=== PATIENT | male | born 1970 | race Caucasian/White ===

== ENCOUNTER → 2016-11-06 | Outpatient (CLI) | payer OTHER | LOC: RAD 17:54 | PROVIDERS: ATTEND Neurological Surgery | DX: G35 Multiple sclerosis (principal) | CPT/HCPCS: 70553; A9577 ==

== ENCOUNTER → 2017-03-20 | Outpatient (CLI) | payer OTHER ==
--- NOTE | 2017-03-21 12:27 | RADIOLOGY REPORT (SQ) ---
EXAM DESCRIPTION: MRI LT UPPER JOINT WITHOUT COMPLETED DATE/TIME: 03/20/2017 9:01 pm REASON FOR STUDY: Pain in left elbow M25.522 PAIN IN LEFT ELBOW COMPARISON: None. TECHNIQUE: Left elbow images acquired and stored on PACS. Multiplanar images to include fat sensiti ve sequences as T1, fluid sensitive sequences as T2/STIR, cartilage sensitive sequences as FSPD, and gradient echo sequences. LIMITATIONS: Artifact over olecranon. FINDINGS: BONE MARROW: No alteration of signal to suggest marrow replacement or edema. No occult fra cture. No large osteophytes. JOINT EFFUSION: None noted. No loose bodies. ARTICULAR SURFACES: Normal. MEDIAL COLLATERAL LIGAMENT COMPLEX: Intact without edema or tear. MEDIAL EPICONDYLE AND COMMON FLEXOR TENDON: Increased signal associated with thickening of the common flexor tendon origin. LATERAL COLLATERAL LIGAMENT: Intact without edema or tear. LATERAL EPICONDYLE AND COMMON EXTENSOR TENDON: No tendinopathy. No partial or full-thickness tear. LATERAL ULNAR COLLATERAL LIGAMENT: Intact without evidence for tear. BICEPS TENDON: Intact. No partial or full-thickness tendon tear. No muscle edema. TRICEPS TENDON: Intact. ULNAR NERVE: Well-visualized without edema or encroachment. ADJACENT SOFT TISSUES: No masses or edema. OTHER: No other significant finding. IMPRESSION: Tendinopathy/partial tear common flexor tendon origin. TECHNICAL DOCUMENTATION: JOB ID: [id number] [employer]- All Rights Reserved
== END ==
LOC: RAD 19:24
PROVIDERS: ATTEND Neurological Surgery
DX: M25.522 Pain in left elbow (principal)

== ENCOUNTER → 2018-04-13 | Day surgery (SDC) | payer OTHER ==
[~2018-04-13] MED LIST: LIDOCAINE 2% INJ (20 MG/ML) 20 ML MDV ONE; METHYLPREDNISOLONE ACETATE INJ 40 MG/1 ML ML ONE
--- NOTE | 2018-04-13 15:23 | Operative Report ---
PREOPERATIVE DIAGNOSIS: Lumbar Spondylosis POSTOPERATIVE DIAGNOSIS: Lumbar Spondylosis PROCEDURE: Radiofrequency Ablation of medial branches - RT L3 L4 L5 DATE OF PROCEDURE: 04/13/2018 ANESTHESIA: Local COMPLICATIONS: None CONSENT: A full description of the procedure was provided including benefits as well as possible complications. All questions were answered and informed consent was given and signed. ASA guidelines for fasting were verified prior to sedation. PROCEDURE IN DETAIL The patient was brought into the fluoroscopy suite and positioned into the prone position on the fluoroscopy table and allowed to adjust to a position of comfort. A grounding pad was placed on the left thigh. The lumbar region was widely prepped with a chloraprep solution, allowed to air dry and draped in standard sterile surgical fashion. Local anesthesia was provided by 1 mL of 1 % lidocaine delivered with a 25 g needle. A 17g 100mm radiofrequency introducer needle was placed to the planned anatomic targets guided with intermittent fluoroscopy with a perpendicular approach to terminally place at the junction of the superior articular process and the transverse process of the right L4 L5 and the base of the sacral ala on the right for the L5 medial branch nerve. The stylets were removed and radiofrequency probes with a 4mm active tip were then inserted. Needle tip position of the probes was verified in the AP, oblique, and lateral views. At each site, the medial branch nerve was stimulated at 2 Hz to a maximum 1-2 volts determined to finalize safe needle and electrode placement. The patient was awake and responsive during this portion of the procedure. Each target was anesthetized with 1-2 mL of 2 % again for anesthesia for lesioning and then each target was lesioned at 80 degrees Celsius for 2 minutes and 30 seconds. Tissue impedences were noted to be between 250 and 500 Ohms. A solution of 40mg depomedrol and sensorcaine injected at each level. Electrodes and needles were then removed and bandages placed over the needle placement sites, the patient then returned to the supine position on a stretcher and transported to the recovery room without hemodynamic, neurologic, or allergic reactions. Fluoroscopic images were printed for hard copy recording and digitally archived. POST PROCEDURE EVALUATION: The patient was comfortable in the recovery room. The patient is aware that pain may worsen before remitting and 4 6 weeks may be required prior to the onset of pain relief. IMPRESSION: 1. Technically successful right L3 L4 L5 medial branch radiofrequency neurotomy for denervation on the right without complication. 2. RTC in 4 weeks. 3. Estimated Blood Loss: 5 cc 4. Fluoroscopy time: See nursing record seconds
== END ==
LOC: RAD 14:21
PROVIDERS: ATTEND Student in an Organized Health Care Education/Training Program
DX: M47.816 Spondylosis without myelopathy or radiculopathy, lumbar region (principal)
CPT/HCPCS: 64636; 64635; J3490; J1020